=== PATIENT | female | born 1965 | race African-American/Black ===

== ENCOUNTER 2016-06-28 10:42 | Day surgery (SDC) ==
[2016-06-28] MEDS ORDERED: LR 1,000 ML ONE (11:21)
[2016-06-28] MEDS ORDERED: PEPCID ONE (11:21)
[2016-06-28] MEDS ORDERED: REGLAN ONE (11:21)
[2016-06-28] MEDS ORDERED: KEFZOL 1 GM/D5W 50 ML ONE (11:22)
[2016-06-28] MEDS ORDERED: NAROPIN 0.5% ONE (14:34)
[2016-06-28] MEDS ORDERED: VERSED ONE (14:37)
[2016-06-28] MEDS ORDERED: DIPRIVAN 1% ONE (17:04)
[2016-06-28] MEDS: MORPHINE ONE ×3 (17:05→17:18)
[2016-06-28] MEDS ORDERED: PERCOCET-5 ONE (17:47)
--- NOTE | 2016-06-28 17:50 | OPERATIVE NOTE ---
PROCEDURE DATE: 06/28/2016 PREOPERATIVE DIAGNOSIS: Right rotator cuff tear and acromioclavicular joint arthritis. POSTOPERATIVE DIAGNOSIS: Right rotator cuff tear and acromioclavicular joint arthritis. PROCEDURE: Arthroscopy of the right shoulder with subacromial decompression, distal clavicle resection, and arthroscopic rotator cuff repair. SURGEON: Lio Patton MD. ASSISTANTS: Morgan Spear RN. ANESTHESIA: General. IV FLUIDS: 1700 mL lactated Ringer. ESTIMATED BLOOD LOSS: 20 mL. COMPLICATIONS: None. INDICATION: The patient is a 50-year-old female with chronic history of pain and discomfort of the right shoulder. Continued pain and discomfort despite about appropriate nonoperative treatment. MRI was obtained and revealed findings consistent with rotator cuff tear and recommendation to proceed with arthroscopy and with the arthroscopic rotator cuff repair was offered. Risks and benefits of surgery were explained, including the risks of anesthesia, , bleeding, infection, fairly to relieve pain, postoperative stiffness, nerve injury, blood clots, and other imponderables. All questions were answered. Patient and family wished to proceed with surgery. DETAILS OF OPERATION: The patient was taken to the operating room and placed in the left lateral decubitus position on a dimas bag with axillary roll. Right shoulder was subsequently prepped and draped in usual sterile fashion and placed to 12 pounds of longitudinal traction. A standard posterior incision was made with an 11 blade, a blunt tip trocar with overlying cannula was introduced. The arthroscope was introduced. Anterior portals were then made. Inspection of glenohumeral joint, with no evidence of chondromalacia. Had an intact stable biceps tendon. Did have evidence of rotator cuff tear involving the supraspinatus tendon. There was no evidence of loose body in the inferior pouch. Attention then turned to the subacromial space. A lateral incision was made in a standard fashion. A 9 degree ArthroCare wand was introduced to debride the undersurface of the acromion. A subacromial decompression then conducted from anterolateral to anteromedial. After smoothly contouring the undersurface, adequate decompression was confirmed through the lateral portal using bony block technique. Attention then turned to the AC joint. After initial debridement, there was evidence of AC joint arthritis. A distal clavicle resection was then performed in standard fashion with 1-2 mm over the articular surface of the acromion. Appeared be good resection confirmed through the anterior portal. Attention was then turned to the bursal surface of the rotator cuff. Further debridement of the sulcus was conducted as well as elevation of the fibers of the supraspinatus tendon. Light decortication was conducted. A Passport cannula was placed in the lateral portal. A spinal needle was placed along the superolateral aspect of the shoulder through a punch along the anteromedial sulcus. This was followed by a 4.75 mm Bio-Composite Healicoil anchor. Good purchase was obtained. The UltraTape was passed in a horizontal mattress fashion with a #2 Ultrabraid as well as #2 Ultrabraid suture was passed between the 2 limbs of the tape. After this had been performed, a second 4.7 mm Bio-Composite Healicoil anchor was placed posterior in medial sulcus in similar fashion. Good purchase was obtained. The sutures were passed in same pattern. After this had been performed, the #2 Ultrabraid from each anchor was tied. One limb from each Ultrabraid suture and the 1st and 3rd UltraTape limbs retrieved through the lateral portal. Using a 5.5 mm Peek MultiFIX S anchor along the anterolateral proximal humerus with tensioning of the sutures after a military pilot hole was placed. The anchor was seated and good purchase was obtained and sutures were cut. The remaining sutures were retrieved through the lateral portal. A second 5.5 mm PEEK MultiFIX S anchor was placed more posteriorly on the lateral proximal humerus in similar fashion. Good purchase was obtained. Sutures were cut. There appeared to be good repair. The arthroscope was then removed. 3-0 nylon was used to close the skin. Adaptic, sterile 4 x 4, ABD pad, and tape applied to the right shoulder, followed by the shoulder immobilizer. All counts were correct. The patient tolerated procedure well. She was transferred to recovery room in stable condition.
[2016-06-28 18:11] VITALS: BP 115/68
[2016-06-29] MEDS ORDERED: DECADRON ONE (08:18)
[2016-06-29] MEDS ORDERED: XYLOCAINE-MPF 2% ONE (08:18)
[2016-06-29] MEDS ORDERED: ROBINUL ONE (08:18)
[2016-06-29] MEDS ORDERED: QUELICIN (DOSE) ONE (08:18)
[2016-06-29] MEDS ORDERED: ZOFRAN ONE (08:18)
[2016-06-29] MEDS ORDERED: LR 1,000 ML ONE (08:18)
== END 2016-06-28 18:20 | disposition home or self-care (01) ==
LOC: PAT 10:42
PROVIDERS: ATTEND Orthopaedic Surgery Adult Reconstructive Orthopaedic Surgery
DX: M75.101 Unspecified rotator cuff tear or rupture of right shoulder, not specified as traumatic (principal); M19.011 Primary osteoarthritis, right shoulder; M25.511 Pain in right shoulder; I10 Essential (primary) hypertension; F32.9 Major depressive disorder, single episode, unspecified; F17.210 Nicotine dependence, cigarettes, uncomplicated; Z79.899 Other long term (current) drug therapy; Z86.11 Personal history of tuberculosis; Z86.73 Personal history of transient ischemic attack (TIA), and cerebral infarction without residual deficits
CPT/HCPCS: J0330; J0690; J1100; J2250; J2270; J2405; J2795; J7120